=== PATIENT | male | born 1980 | race Caucasian/White ===

== ENCOUNTER 2019-03-02 15:34 | Inpatient (IN) | payer OTHER ==
[2019-03-02 19:43] VITALS: BMI 28.7
--- NOTE | 2019-03-02 21:05 | HP ---
COWS - Scale Resting Pulse: 1= OR 81-100 Sweatin= Chills/Flushing Restless Observation: 1= Difficult to Sit Still Pupil Size: 1= Pupils >than Normal Bone or Joint Aches: 1= Mild Discomfort Runny Nose/ Eye Tearin= Nasal Congestion GI Upset > 30mins: 2= Nausea/Diarrhea Tremor Observation: 1= Tremor [place], Not Seen Yawning Observation: 1= 1-2x During Session Anxiety or Irritability: 1=Feels Anxious/Irritable Goose Flesh Skin: 3=Piloerection COWS Score: 14 CIWA Score - Admission Criteria [facility]ASAS Guidelines: Admission for Medically Managed Detox: Requires at least one of the followin. CIWA greater than 12 2. Seizures within the past 24 hours 3. Delirium tremens within the past 24 hours 4. Hallucinations within the past 24 hours 5. Acute intervention needed for co occurring medical disorder 6. Acute intervention needed for co occurring psychiatric disorder 7. Severe withdrawal that cannot be handled at a lower level of care (continued vomiting, continued diarrhea, abnormal vital signs) requiring intravenous medication and/or fluids 8. Admission [facility] Chief Complaint: heroin detox 38 yo with no medical problems, on no meds, last here about 3 years ago for detox. Since then has used heroin on and off. Has been using heroin consistently since Sep 2018. Says he is tired of getting high, wants to go into outpt methadone. Pt is homeless- stays on the street, or in friend's houses. Has no PCP. Works as a carpenter's helper heroin- uses $100/day, IV heroin, last OD 2 weeks ago, did not go ER, has a narcan kit occ uses other drugs- but can't remember. Uses them when he is high. DUR- no meds Allergies/Adverse Reactions: Allergies Allergy/AdvReac Type Severity Reaction Status Date / Time No Known Allergies Allergy Verified 09/22/15 17:15 - Ebola screening Have you traveled outside of the country in the last 21 days: No Have you had contact with anyone from an Ebola affected area: No Patient History - Patient Medical History Hx Anemia: No Hx Asthma: No Hx Chronic Obstructive Pulmonary Disease (COPD): No Hx Cancer: No Hx Cardiac Disorders: No Hx Congestive Heart Failure: No Hx Hypertension: No Hx Hypercholesterolemia: No Hx Pacemaker: No HX Cerebrovascular Accident: No Hx Seizures: No Hx Dementia: No Hx Diabetes: No Hx Gastrointestinal Disorders: No Hx Liver Disease: No Hx Genitourinary Disorders: No Hx Sexually Transmitted Disorders: No Hx Renal Disease (ESRD): No Hx Thyroid Disease: No Hx Human Immunodeficiency Virus (HIV): No Hx Hepatitis C: No Hx Depression: No Hx Suicide Attempt: No Hx Bipolar Disorder: No Hx Schizophrenia: No - Patient Surgical History Past Surgical History: No - PPD History Date: 09/24/15 - Smoking Cessation Smoking history: Never smoked - Substances abused Heroin Substance route: Injection Frequency: Daily Amount used: $100.00 Age of first use: 17 Date of last use: 03/01/19 Family Disease History - Family Disease History Family Disease History: Other: Father (no med problems), Mother Admission Physical Exam BHS - Vital Signs Vital Signs: Vital Signs - 24 hr 03/02/19 19:33 Temperature 99.5 F Pulse Rate 71 Respiratory 18 Rate Blood Pressure 141/95 - Physical General Appearance: Yes: Within Normal Limits, Anxious HEENTM: Yes: Within Normal Limits, Hearing grossly Normal, Normal Voice, SARAHY Respiratory: Yes: Within Normal Limits, Lungs Clear Neck: Yes: Within Normal Limits Cardiology: Yes: Within Normal Limits, Regular Rhythm, Regular Rate Abdominal: Yes: Within Normal Limits, Normal Bowel Sounds Back: Yes: Within Normal Limits, Normal Inspection Musculoskeletal: Yes: Within Normal Limits, full range of Motion, Gait Steady Extremities: Yes: Within Normal Limits, Normal Capillary Refill Neurological: Yes: Within Normal Limits, Fully Oriented Integumentary: Yes: Within Normal Limits, Track Mcdonnell - Diagnostic (1) Opioid dependence with withdrawal Current Visit: No Status: Acute Breathalyzer - Breathalyzer Breathalyzer: 0 Urine Drug Screen - Test Device Lot number: [id number] Expiration date: 11/12/20 - Control Is test valid?: Yes - Results Drug screen NEGATIVE: No Urine drug screen results: MET-Methamphetamine, MOP-Opiates, MTD-Methadone Inpatient Rehab Admission - Rehab Decision to Admit Inpatient rehab admission?: No
[2019-03-02] MEDS ORDERED: MENTHOL/PHENOL 1 EACH UD MM PRN (21:10)
[2019-03-02] MEDS ORDERED: ACETAMINOPHEN 325 MG TABLET (FP) PO PRN ×2 (21:10)
[2019-03-02] MEDS ORDERED: MAGNESIUM HYDROX 2400MG/30ML ORAL SUSPENSION 30 ML CUP PO PRN (21:10)
[2019-03-02] MEDS ORDERED: MELATONIN 5 MG TABLETS PO PRN (21:10)
[2019-03-02] MEDS ORDERED: cloNIDine HCL 0.1 MG TABLET PO PRN (21:10)
[2019-03-02] MEDS ORDERED: NALOXONE HCL 0.4 MG/ML VIAL IVPUSH PRN (21:10)
[2019-03-02] MEDS ORDERED: IBUPROFEN 400 MG TABLET (FP) PO PRN (21:10)
[2019-03-02] MEDS ORDERED: ONDANSETRON *ODT* 4 MG TABLET SL PRN (21:10)
[2019-03-02] MEDS ORDERED: BISMUTH SUBSALICYLATE 524 MG/30 ML UD PO PRN (21:10)
[2019-03-02] MEDS ORDERED: MAG HYDROX/AL HYDROX/SIMETH 30 ML UNIT-DOSE CUP PO PRN (21:10)
[2019-03-02] MEDS ORDERED: MAGNESIUM CITRATE 300 ML BOTTLE PO PRN (21:10)
[2019-03-02] MEDS ORDERED: hydrOXYzine PAMOATE 25 MG CAPSULE (FP) PO PRN (21:10)
[2019-03-02] MEDS ORDERED: METHADONE HCL 10 MG TABLET (FOR DETOX USE ONLY) PO ONE ×2 (22:00→23:00)
[2019-03-02] MEDS: THIAMINE HCL 100 MG TABLET (FP) PO SCH (22:55)
[2019-03-03] MEDS ORDERED: METHADONE HCL 10 MG TABLET (FOR DETOX USE ONLY) PO ONE (10:00)
[2019-03-03] MEDS: PRENATAL VITAMINS W/ FOLIC ACID TABLET (FP) PO SCH (10:44)
[2019-03-03 11:48] LABS: HEMATOCRIT 37.6 % (35.4-49); HEMOGLOBIN 12.4 GM/dL (11.7-16.9); MCHC 32.9 g/dl (32.0-35.9); MEAN CELL VOLUME 82.1 fl (80-96); MEAN PLT VOLUME 7.5 fl (7.5-11.1); PLATELET COUNT 271 K/MM3 (134-434); RBC 4.57 M/mm3 (4.00-5.60); WHITE BLOOD COUNT 7.1 K/mm3 (4.0-10.0)
[2019-03-03 11:50] LABS: ALBUMIN 3.5 g/dl (3.4-5.0); BILIRUBIN,TOTAL 0.5 mg/dL (0.2-1); CALCIUM 8.2 mg/dL (8.5-10.1); CREATININE 0.8 mg/dL (0.55-1.3)
--- NOTE | 2019-03-03 14:59 | PN ---
BHS COWS - Scale Resting Pulse: 0= [place] 80 or Below Sweatin= Chills/Flushing Restless Observation: 0= Sits Still Pupil Size: 0= Normal to Room Light Bone or Joint Aches: 1= Mild Discomfort Runny Nose/ Eye Tearin= Nasal Congestion GI Upset > 30mins: 0= None Tremor Observation of Outstretched Hands: 2= Slight Tremor Visible Yawning Observation: 1= 1-2x During Session Anxiety or Irritability: 2=Irritable/Anxious Goose Flesh Skin: 3=Piloerection COWS Score: 11 BHS Progress Note (SOAP) Subjective: Tremors, Anxious, Sweating. Objective: PATIENT A & O X 3, OBSERVED AMBULATING ON UNIT UNASSISTED. IN NO ACUTE DISTRESS. 03/03/19 14:59 Vital Signs Temperature 98.1 F 03/03/19 13:10 Pulse Rate 62 03/03/19 13:10 Respiratory Rate 18 03/03/19 13:10 Blood Pressure 130/85 03/03/19 13:10 O2 Sat by Pulse Oximetry (%) Laboratory Tests 03/03/19 03/03/19 03/03/19 07:30 07:30 07:30 WBC 7.1 RBC 4.57 Hgb 12.4 Hct 37.6 MCV 82.1 MCH 27.0 MCHC 32.9 RDW 14.0 Plt Count 271 D MPV 7.5 Sodium 142 Potassium 4.0 Chloride 104 Carbon Dioxide 31 Anion Gap 7 L BUN 16.0 Creatinine 0.8 Est GFR (CKD-EPI)AfAm 133.20 Est GFR (CKD-EPI)NonAf 114.93 Random Glucose 75 Calcium 8.2 L Total Bilirubin 0.5 AST 13 L ALT 18 Alkaline Phosphatase 93 Total Protein 7.0 Albumin 3.5 RPR Titer Nonreactive LABS NOTED. Assessment: 03/03/19 15:00 WITHDRAWAL SYMPTOMS. Plan: CONTINUE DETOX.
[2019-03-03] MEDS: clonazePAM 0.5 MG TABLET PO PRN (22:30)
[2019-03-03] MEDS: THIAMINE HCL 100 MG TABLET (FP) PO SCH (23:34)
[2019-03-04] MEDS ORDERED: METHADONE HCL 10 MG TABLET (FOR DETOX USE ONLY) PO ONE (10:00)
[2019-03-04] MEDS: clonazePAM 0.5 MG TABLET PO PRN ×2 (10:36→22:31)
[2019-03-04] MEDS: PRENATAL VITAMINS W/ FOLIC ACID TABLET (FP) PO SCH (10:37)
--- NOTE | 2019-03-04 13:26 | PN ---
S COWS - Scale Resting Pulse: 0= [place] 80 or Below Sweatin= Chills/Flushing Restless Observation: 1= Difficult to Sit Still Pupil Size: 1= Pupils >than Normal Bone or Joint Aches: 2= Severe Diffuse Aches Runny Nose/ Eye Tearin= Nasal Congestion GI Upset > 30mins: 2= Nausea/Diarrhea Tremor Observation of Outstretched Hands: 2= Slight Tremor Visible Yawning Observation: 1= 1-2x During Session Anxiety or Irritability: 2=Irritable/Anxious Goose Flesh Skin: 0=Smooth Skin COWS Score: 13 BHS Progress Note (SOAP) Subjective: alert,irritable,anxious,interrupted sleep,pain in the body and back,tremor Objective: 03/04/19 13:24 Vital Signs Temperature 97.1 F L 03/04/19 09:35 Pulse Rate 67 03/04/19 09:35 Respiratory Rate 18 03/04/19 09:35 Blood Pressure 110/68 03/04/19 09:35 O2 Sat by Pulse Oximetry (%) Laboratory Last Values WBC 7.1 K/mm3 (4.0-10.0) 03/03/19 07:30 RBC 4.57 M/mm3 (4.00-5.60) 03/03/19 07:30 Hgb 12.4 GM/dL (11.7-16.9) 03/03/19 07:30 Hct 37.6 % (35.4-49) 03/03/19 07:30 MCV 82.1 fl (80-96) 03/03/19 07:30 MCH 27.0 pg (25.7-33.7) 03/03/19 07:30 MCHC 32.9 g/dl (32.0-35.9) 03/03/19 07:30 RDW 14.0 % (11.9-15.9) 03/03/19 07:30 Plt Count 271 K/MM3 (134-434) D 03/03/19 07:30 MPV 7.5 fl (7.5-11.1) 03/03/19 07:30 Sodium 142 mmol/L (136-145) 03/03/19 07:30 Potassium 4.0 mmol/L (3.5-5.1) 03/03/19 07:30 Chloride 104 mmol/L (98-107) 03/03/19 07:30 Carbon Dioxide 31 mmol/L (21-32) 03/03/19 07:30 Anion Gap 7 MMOL/L (8-16) L 03/03/19 07:30 BUN 16.0 mg/dL (7-18) 03/03/19 07:30 Creatinine 0.8 mg/dL (0.55-1.3) 03/03/19 07:30 Est GFR (CKD-EPI)AfAm 133.20 03/03/19 07:30 Est GFR (CKD-EPI)NonAf 114.93 03/03/19 07:30 Random Glucose 75 mg/dL (74-106) 03/03/19 07:30 Calcium 8.2 mg/dL (8.5-10.1) L 03/03/19 07:30 Total Bilirubin 0.5 mg/dL (0.2-1) 03/03/19 07:30 AST 13 U/L (15-37) L 03/03/19 07:30 ALT 18 U/L (13-61) 03/03/19 07:30 Alkaline Phosphatase 93 U/L (45-117) 03/03/19 07:30 Total Protein 7.0 g/dl (6.4-8.2) 03/03/19 07:30 Albumin 3.5 g/dl (3.4-5.0) 03/03/19 07:30 RPR Titer Nonreactive (NONREACTIVE) 03/03/19 07:30 Assessment: 03/04/19 13:25 withdrawal symptom Plan: continue detox,history of bipolar disorder ,psychiatric consultation
[2019-03-04] MEDS: METHOCARBAMOL 500 MG TABLET PO PRN ×2 (14:20→20:47)
[2019-03-04] MEDS: THIAMINE HCL 100 MG TABLET (FP) PO SCH (22:31)
[2019-03-05 09:39] VITALS: BP 125/70; PULSE 68; TEMP 97.4
[2019-03-05] MEDS ORDERED: METHADONE HCL 10 MG TABLET (FOR DETOX USE ONLY) PO ONE (10:00)
[2019-03-05] MEDS: PRENATAL VITAMINS W/ FOLIC ACID TABLET (FP) PO SCH (10:49)
[2019-03-05] MEDS: METHOCARBAMOL 500 MG TABLET PO PRN (10:51)
--- NOTE | 2019-03-05 12:27 | CONSULT ---
[facility] Psychiatric Consult - Data Date of interview: 03/05/19 Admission source: [facility] Identifying data: Patient is approached at bedside for the psychiatric interview. Noted as well groomed, pleasant on approach and appropriate. Mr Burroughs, politely, declines interview. " I don't need to be seen by a psychiatrist. I am doing fine. In fact, I am about to leave this program. I have to return to work today. The nurse practitioner is already preparing my discharge papers. Thank you ". Consult cancelled.
--- NOTE | 2019-03-05 15:48 | PN ---
BHS COWS - Scale Resting Pulse: 0= [place] 80 or Below Sweatin= Chills/Flushing Restless Observation: 1= Difficult to Sit Still Pupil Size: 0= Normal to Room Light Bone or Joint Aches: 0= None Runny Nose/ Eye Tearin= None GI Upset > 30mins: 0= None Tremor Observation of Outstretched Hands: 0= None Yawning Observation: 1= 1-2x During Session Anxiety or Irritability: 0= None Goose Flesh Skin: 0=Smooth Skin COWS Score: 3 BHS Progress Note (SOAP) Subjective: Patient denies current Withdrawal / Detox symptoms and reports that he feels well overall at this time. Objective: PATIENT A & O X 3, OBSERVED AMBULATING ON UNIT UNASSISTED. IN NO ACUTE DISTRESS. 03/05/19 15:47 Vital Signs Temperature 97.4 F L 03/05/19 09:39 Pulse Rate 68 03/05/19 09:39 Respiratory Rate 18 03/05/19 09:39 Blood Pressure 125/70 03/05/19 09:39 O2 Sat by Pulse Oximetry (%) Laboratory Tests 03/03/19 03/03/19 03/03/19 07:30 07:30 07:30 WBC 7.1 RBC 4.57 Hgb 12.4 Hct 37.6 MCV 82.1 MCH 27.0 MCHC 32.9 RDW 14.0 Plt Count 271 D MPV 7.5 Sodium 142 Potassium 4.0 Chloride 104 Carbon Dioxide 31 Anion Gap 7 L BUN 16.0 Creatinine 0.8 Est GFR (CKD-EPI)AfAm 133.20 Est GFR (CKD-EPI)NonAf 114.93 Random Glucose 75 Calcium 8.2 L Total Bilirubin 0.5 AST 13 L ALT 18 Alkaline Phosphatase 93 Total Protein 7.0 Albumin 3.5 RPR Titer Nonreactive LABS NOTED. Assessment: 03/05/19 15:47 COMPLETION OF DETOX REGIMEN. Plan: SINCE PATIENT DENIES CURRENT WITHDRAWAL / DETOX SYMPTOMS AND REPORTS THAT HE FEELS WELL OVERALL, AT PATIENTS REQUEST, HE WAS GRANTED AN EARLY DISCHARGE FROM DETOX UNIT TODAY SO THAT HE MAY RETURN TO WORK.
--- NOTE | 2019-03-05 15:55 | DS ---
[facility] Detox Discharge Summary Admission Date: 03/02/19 Discharge Date: 03/05/19 - History Present History: Opioid Dependence Additional Comments: PATIENT DENIES CURRENT WITHDRAWAL / DETOX SYMPTOMS AND REPORTS THAT HE FEELS WELL OVERALL AT TIME OF DISCHARGE FROM DETOX UNIT. PATIENT RETURNING HOME AND TO WORK AT THIS TIME. PATIENT ALSO NOTES THAT HE WILL ATTEND [facility] ([place], [place]) AFTER DISCHARGE FROM DETOX UNIT. PATIENT WAS DISCHARGED FROM DETOX UNIT IN STABLE MEDICAL CONDITION. - Physical Exam Results Vital Signs: Vital Signs Temperature 97.4 F L 03/05/19 09:39 Pulse Rate 68 03/05/19 09:39 Respiratory Rate 18 03/05/19 09:39 Blood Pressure 125/70 03/05/19 09:39 O2 Sat by Pulse Oximetry (%) Pertinent Admission Physical Exam Findings: WITHDRAWAL SYMPTOMS. Laboratory Tests 03/03/19 03/03/19 03/03/19 07:30 07:30 07:30 WBC 7.1 RBC 4.57 Hgb 12.4 Hct 37.6 MCV 82.1 MCH 27.0 MCHC 32.9 RDW 14.0 Plt Count 271 D MPV 7.5 Sodium 142 Potassium 4.0 Chloride 104 Carbon Dioxide 31 Anion Gap 7 L BUN 16.0 Creatinine 0.8 Est GFR (CKD-EPI)AfAm 133.20 Est GFR (CKD-EPI)NonAf 114.93 Random Glucose 75 Calcium 8.2 L Total Bilirubin 0.5 AST 13 L ALT 18 Alkaline Phosphatase 93 Total Protein 7.0 Albumin 3.5 RPR Titer Nonreactive LABS NOTED. - Treatment Hospital Course: Detox Protocol Followed, Detoxed Safely, Responded well, Discharged Condition Good Patient has Accepted a Rehab Referral to: PATIENT WILL ATTEND [facility]. - Medication Discharge Medications: Ambulatory Orders NK [No Known Home Medication] 09/22/15 - Diagnosis (1) Opioid dependence with withdrawal Status: Acute - AMA Did Patient Leave Against Medical Advice: No
[2019-03-06] MEDS ORDERED: METHADONE HCL 5 MG TABLET (FOR DETOX USE ONLY) PO ONE (06:00)
== END 2019-03-05 01:00 | disposition home or self-care (01) | DRG 773 ==
LOC: YASAS 15:34 → Y3N 22:12
PROVIDERS: ADMIT Surgery; ATTEND Surgery
PROC: HZ2ZZZZ Detoxification Services for Substance Abuse Treatment (ICD-10-PCS; principal; 2019-03-02)
DX: F11.23 Opioid dependence with withdrawal (principal); F15.10 Other stimulant abuse, uncomplicated
CPT/HCPCS: 36415; 80053; 85027; 86593; Q0162